=== PATIENT | female | born 1990 | race African-American/Black ===

== ENCOUNTER 2018-03-04 17:22 | Emergency (ER) | payer OTHER ==
[~2018-03-04] VITALS: Ht 165.1 cm; Wt 86.2 kg
[2018-03-04 18:01] VITALS: BP 120/75
== END 2018-03-04 19:05 | disposition home or self-care (01) ==
LOC: ER 17:23
DX: T19.2XXA Foreign body in vulva and vagina, initial encounter (principal); X58.XXXA Exposure to other specified factors, initial encounter; Y93.89 Activity, other specified; Y92.89 Other specified places as the place of occurrence of the external cause; Y99.8 Other external cause status
CPT/HCPCS: A4606; Z7610

== ENCOUNTER 2019-02-04 06:03 | Emergency (ER) | payer OTHER ==
[~2019-02-04] VITALS: Ht 167.6 cm; Wt 96.6 kg
[2019-02-04] MEDS ORDERED: IBUPROFEN 600 MG TABLET PO ONE ×2 (06:59→07:00)
[2019-02-04] MEDS ORDERED: METOCLOPRAMIDE HCL 10 MG/2 ML VIAL IV ONE (07:00)
[2019-02-04] MEDS ORDERED: IV NS 0.9% 1,000 ML IV ONE (07:00)
[2019-02-04] MEDS ORDERED: METOCLOPRAMIDE HCL 10 MG TABLET ONE (07:00)
[2019-02-04] MEDS ORDERED: KETOROLAC TROMETHAMINE INJ 30 MG/ML VIAL IV ONE (07:00)
[2019-02-04] MEDS ORDERED: METOCLOPRAMIDE HCL 10 MG TABLET PO ONE (07:00)
[2019-02-04 07:04] VITALS: BP 115/67
--- NOTE | 2019-02-04 07:11 | NUR ---
NICHOLAS SELF 100% IN RA. AOX4. NO SOB OR ACUTE RESPIRATORY DISTRESS. COMPLAINING OF SEVERE HEADACHE. AFEBRIEL. VSS. STATED SHE HAD AN EPISODE MIGRAINE WHEN SHE TAKE [place]FROM [place] IT WENT AWAY, BUT IF ITS REALLY HURT SHE WENT TO THE HOSPITAL FOR TREATMENT. PATIENT REFUSED TO PLACE AN IV PER SHE WANT ALL HER MEDICINE BY MOUTH. AWARE. ALL DUE MEDICINE GIVEN PER BARBARA REQUESTED.
--- NOTE | 2019-02-04 08:13 | NUR ---
Patient discharged to home in stable condition. Written and verbal after care instructions given. Patient verbalizes understanding of instruction.
== END 2019-02-04 08:13 | disposition home or self-care (01) ==
LOC: ER 06:07
DX: R51 Headache (principal)
CPT/HCPCS: 99283; J8597; J7030